=== PATIENT | male | born 1975 | race Caucasian/White ===

== ENCOUNTER 2018-07-16 15:30 | Emergency (ER) | payer BC ==
--- NOTE | 2018-07-16 15:36 | UC ---
Cardiac HPI - HPI Summary HPI Summary: fleeting episodes of chest pain until 3 days ago--got SOB while swimming ( which is unusual for him). has a family history of cardiac disorders,takes an aspirin, last cholesterol check was 1 year ago and did not need to be on medications, non-smoker, no leg pain or swelling, has not had a cardiac stress test - History of Current Complaint Chief Complaint: UCCardiac Stated Complaint: CHEST TIGHTNESS Time Seen by Provider: 07/16/18 15:35 Hx Obtained From: Patient Onset/Duration: Sudden Onset, Worse Since - 4 days ago had an episode of MCKEON Timing: Intermittent Episodes Lasting: Current Severity: Mild Chest Pain Location: Right Anterior Character: Tightness Aggravating Factor(s): Exertion - -causes SOB 3 days ago Alleviating Factor(s): Rest Associated Signs & Symptoms: Positive: Chest Pain, SOB. Negative: Syncope, Diaphoresis, Nausea/Vomiting - Allergy/Home Medications Allergies/Adverse Reactions: Allergies Allergy/AdvReac Type Severity Reaction Status Date / Time animal dander Allergy Severe respiratory Uncoded 07/16/18 15:48 /hives apples Allergy Severe tingling Uncoded 07/16/18 15:48 in mouth pears Allergy Severe Tingling Uncoded 07/16/18 15:48 pitted fruit Allergy Severe oral Uncoded 07/16/18 15:48 tingling Home Medications: Home Medications Fluticasone-Salmeterol 100-50* [Advair Diskus 100-50*] 07/16/18 [History Confirmed 07/16/18] Loratadine [Claritin] 10 mg PO 07/16/18 [History] PMH/Surg Hx/FS Hx/Imm Hx Respiratory History: Asthma - Surgical History Surgical History: None - Family History Known Family History: Positive: Cardiac Disease - Social History Occupation: Employed Full-time Lives: With Family Alcohol Use: Occasionally Substance Use Type: None Review of Systems Constitutional: Negative Skin: Negative Eyes: Negative ENT: Negative Respiratory: Shortness Of Breath - with exertion 3 days ago Cardiovascular: Negative Gastrointestinal: Negative Genitourinary: Negative Motor: Negative Neurovascular: Negative Musculoskeletal: Negative Neurological: Negative Psychological: Negative Is Patient Immunocompromised?: No All Other Systems Reviewed And Are Negative: Yes Physical Exam Triage Information Reviewed: Yes Appearance: Well-Appearing, No Pain Distress, Well-Nourished Vital Signs Reviewed: Yes Eye Exam: Normal Eyes: Positive: Conjunctiva Clear ENT Exam: Normal ENT: Positive: Normal ENT inspection, Hearing grossly normal, Pharynx normal, TMs normal, Uvula midline. Negative: Nasal congestion, Tonsillar swelling, Tonsillar exudate, Trismus, Muffled voice, Hoarse voice, Dental tenderness, Sinus tenderness Dental Exam: Normal Neck exam: Normal Neck: Positive: Supple, Nontender, No Lymphadenopathy Respiratory Exam: Normal Respiratory: Positive: Chest non-tender, Lungs clear, Normal breath sounds, No respiratory distress, No accessory muscle use Cardiovascular Exam: Normal Cardiovascular: Positive: RRR, No Murmur, Pulses Normal, Brisk Capillary Refill Abdominal Exam: Normal Abdomen Description: Positive: Nontender, No Organomegaly, Soft. Negative: CVA Tenderness (R), CVA Tenderness (L), Distended, Guarding, Peritoneal Signs Bowel Sounds: Positive: Present Musculoskeletal Exam: Normal Musculoskeletal: Positive: Strength Intact, ROM Intact, No Edema Neurological Exam: Normal Neurological: Positive: Alert, Muscle Tone Normal Psychological Exam: Normal Skin Exam: Normal Diagnostics - EKG Cardiac Rate: NL Cardiac Rhythm: Sinus: Normal Ectopy: None ST Segment: Normal EKG Comparison: No Significant Change - Assessment/Plan Course Of Treatment: plan will go to [facility] [place] [place] ED by private car for further evaluation of Chest Pain - Clinical Impression Provider Diagnoses: Dyspnea on exertion, chest pain - Physician Notifications Instructed by Provider To: Other - to [facility] by private car Discharge - Sign-Out/Discharge Documenting (check all that apply): Patient Departure - Discharge Plan Condition: Stable Disposition: HOME-RECOMMEND TO ED Patient Education Materials: Chest Pain (ED), Shortness of Breath (ED) Referrals: Tucker Heller MD [Primary Care Provider] - - Billing Disposition and Condition Condition: STABLE Disposition: Home-Recommend to ED
[2018-07-16 15:48] VITALS: BP 128/75
== END 2018-07-16 16:24 | disposition home health service (06) ==
LOC: UCEAST 15:30
DX: R06.00 Dyspnea, unspecified (principal); R07.89 Other chest pain; J45.909 Unspecified asthma, uncomplicated
CPT/HCPCS: 93005; 99212; G0463

== ENCOUNTER 2018-07-16 16:52 | Emergency (ER) | payer BC ==
--- NOTE | 2018-07-16 18:54 | RAD ---
INDICATION: Chest pain COMPARISON: August 30, 2013 TECHNIQUE: PA and lateral dual-energy views were obtained. FINDINGS: Bones/Soft Tissues: There are no acute bony findings. Cardiomediastinal: The cardiomediastinal silhouette is normal. Lungs: There are no infiltrates. Pleura: There are no pleural effusions. Other: None IMPRESSION: NO ACTIVE DISEASE.
[2018-07-16 19:44] LABS: ABS Basophils 0 10^3/ul (0-0.2); ABS Eosinophils 0.3 10^3/ul (0-0.6); ABS Lymphocytes 1.6 10^3/ul (1.0-4.8); ABS Monocytes 0.6 10^3/ul (0-0.8); ABS Nucleated RBC 0 10^3/ul; Eosinophil % 3.5 % (0-6); Hematocrit 44 % (42-52); Hemoglobin 14.8 g/dl (14.0-18.0); Lymphocyte % 21.8 % (25-47); Mean Corpuscular HGB Conc 34 g/dl (31-36); Mean Corpuscular Hemoglobin 29 pg (27-31); Mean Corpuscular Volume 84 fL (80-94); Mean Platelet Volume 8.1 um3 (7.4-10.4); Nucleated Red Blood Cells % 0.1; Platelet Count 270 10^3/ul (150-450); Red Blood Count 5.18 10^6/ul (4.00-5.40); Red Cell Distribution Width 13 % (10.5-15); White Blood Count 7.5 10^3/ul (3.5-10.8)
[2018-07-16 20:04] LABS: EGFR Non-African American 68.7 (>60)
--- NOTE | 2018-07-16 22:22 | ED ---
HPI Chest Pain - HPI Summary HPI Summary: 43-year-old male presents today with chest pain for the past 2 weeks. He states that it seems to be worse after he eats. He has tried Tums with some relief. She also states that he went swimming 1 lap on Friday and developed shortness of breath. He states it was felt that chest tightness. He has history of asthma. He states that he normally swims once a week and never gets short of breath. He admits to occasional cough that is nonproductive. No fevers. He admits to some epigastric pain. He states the pain changes location in his chest. He states it is sharp or burning in nature. He denies any pain or swelling in his calf muscles. He is nonsmoker. He does have a family history of cardiac disease with his grandfather unsure what age and diagnosis it. He has had this before and it was found out to be gastritis. has not had a stress test. - History of Current Complaint Chief Complaint: EDChestPainROMI Time Seen by Provider: 07/16/18 22:07 Pain Intensity: 1 - Allergy/Home Medications Allergies/Adverse Reactions: Allergies Allergy/AdvReac Type Severity Reaction Status Date / Time pollen extracts Allergy Eyes Verified 07/16/18 22:12 Itchy/Swollen/Red/Watery animal dander Allergy Severe respiratory Uncoded 07/16/18 15:48 /hives apples Allergy Severe tingling Uncoded 07/16/18 15:48 in mouth pears Allergy Severe Tingling Uncoded 07/16/18 15:48 pitted fruit Allergy Severe oral Uncoded 07/16/18 15:48 tingling PMH/Surg Hx/FS Hx/Imm Hx Endocrine/Hematology History: Denies: Hx Anticoagulant Therapy Cardiovascular History: Denies: Hx Hypertension Respiratory History: Reports: Hx Asthma - Immunization History Date of Tetanus Vaccine: unk Date of Influenza Vaccine: fall 2016 Infectious Disease History: No Infectious Disease History: Denies: Traveled Outside the [place] in Last 30 Days - Family History Known Family History: Positive: Cardiac Disease - Social History Alcohol Use: Occasionally Substance Use Type: Reports: None Smoking Status (MU): Never Smoked Tobacco Review of Systems Negative: Fever Positive: Chest Pain Positive: Shortness Of Breath, Cough Positive: Abdominal Pain, Nausea. Negative: Vomiting, Diarrhea All Other Systems Reviewed And Are Negative: Yes Physical Exam Triage Information Reviewed: Yes Vital Signs On Initial Exam: Initial Vitals Temp Pulse Resp BP Pulse Ox 97.8 F 82 16 126/88 96 07/16/18 17:08 07/16/18 17:08 07/16/18 17:08 07/16/18 17:08 07/16/18 17:08 Vital Signs Reviewed: Yes Appearance: Positive: Well-Appearing Skin: Positive: Warm, Dry Head/Face: Positive: Normal Head/Face Inspection Eyes: Positive: Normal, EOMI, JONY, Conjunctiva Clear ENT: Positive: Pharynx normal Respiratory/Lung Sounds: Positive: Clear to Auscultation, Breath Sounds Present , Other - nontender chest wall Cardiovascular: Positive: Normal, RRR Abdomen Description: Positive: Nontender, Soft Bowel Sounds: Positive: Present Musculoskeletal: Positive: Normal Neurological: Positive: Normal Psychiatric: Positive: Normal Diagnostics - Vital Signs Vital Signs Temp Pulse Resp BP Pulse Ox 07/16/18 20:40 98.2 F 86 16 136/83 99 07/16/18 17:08 97.8 F 82 16 126/88 96 - Laboratory Lab Results: Lab Results 07/16/18 07/16/18 07/16/18 Range/Units 19:37 19:37 19:37 WBC 7.5 (3.5-10.8) 10^3/ul RBC 5.18 (4.00-5.40) 10^6/ul Hgb 14.8 (14.0-18.0) g/dl Hct 44 (42-52) % MCV 84 (80-94) fL MCH 29 (27-31) pg MCHC 34 (31-36) g/dl RDW 13 (10.5-15) % Plt Count 270 (150-450) 10^3/ul MPV 8.1 (7.4-10.4) um3 Neut % (Auto) 67.0 (38-83) % Lymph % (Auto) 21.8 L (25-47) % Clayton % (Auto) 7.4 H (0-7) % Eos % (Auto) 3.5 (0-6) % Baso % (Auto) 0.3 (0-2) % Absolute Neuts (auto) 5.0 (1.5-7.7) 10^3/ul Absolute Lymphs (auto) 1.6 (1.0-4.8) 10^3/ul Absolute Monos (auto) 0.6 (0-0.8) 10^3/ul Absolute Eos (auto) 0.3 (0-0.6) 10^3/ul Absolute Basos (auto) 0 (0-0.2) 10^3/ul Absolute Nucleated RBC 0 10^3/ul Nucleated RBC % 0.1 D-Dimer, Quantitative (Less Than 230) ng/mL Sodium 138 (135-145) mmol/L Potassium 4.1 (3.5-5.0) mmol/L Chloride 103 (101-111) mmol/L Carbon Dioxide 30 (22-32) mmol/L Anion Gap 5 (2-11) mmol/L BUN 17 (6-24) mg/dL Creatinine 1.17 (0.67-1.17) mg/dL Est GFR ( Amer) 83.1 (>60) Est GFR (Non-Af Amer) 68.7 (>60) BUN/Creatinine Ratio 14.5 (8-20) Glucose 132 H (70-100) mg/dL Lactic Acid 1.5 (0.5-2.0) mmol/L Calcium 9.2 (8.6-10.3) mg/dL Total Bilirubin 0.30 (0.2-1.0) mg/dL AST 20 (13-39) U/L ALT 20 (7-52) U/L Alkaline Phosphatase 45 (34-104) U/L Troponin I 0.00 (<0.04) ng/mL Total Protein 6.8 (6.4-8.9) g/dL Albumin 4.4 (3.2-5.2) g/dL Globulin 2.4 (2-4) g/dL Albumin/Globulin Ratio 1.8 (1-3) 07/16/18 07/16/18 Range/Units 19:37 21:28 WBC (3.5-10.8) 10^3/ul RBC (4.00-5.40) 10^6/ul Hgb (14.0-18.0) g/dl Hct (42-52) % MCV (80-94) fL MCH (27-31) pg MCHC (31-36) g/dl RDW (10.5-15) % Plt Count (150-450) 10^3/ul MPV (7.4-10.4) um3 Neut % (Auto) (38-83) % Lymph % (Auto) (25-47) % Clayton % (Auto) (0-7) % Eos % (Auto) (0-6) % Baso % (Auto) (0-2) % Absolute Neuts (auto) (1.5-7.7) 10^3/ul Absolute Lymphs (auto) (1.0-4.8) 10^3/ul Absolute Monos (auto) (0-0.8) 10^3/ul Absolute Eos (auto) (0-0.6) 10^3/ul Absolute Basos (auto) (0-0.2) 10^3/ul Absolute Nucleated RBC 10^3/ul Nucleated RBC % D-Dimer, Quantitative < 200 (Less Than 230) ng/mL Sodium (135-145) mmol/L Potassium (3.5-5.0) mmol/L Chloride (101-111) mmol/L Carbon Dioxide (22-32) mmol/L Anion Gap (2-11) mmol/L BUN (6-24) mg/dL Creatinine (0.67-1.17) mg/dL Est GFR ( Amer) (>60) Est GFR (Non-Af Amer) (>60) BUN/Creatinine Ratio (8-20) Glucose (70-100) mg/dL Lactic Acid (0.5-2.0) mmol/L Calcium (8.6-10.3) mg/dL Total Bilirubin (0.2-1.0) mg/dL AST (13-39) U/L ALT (7-52) U/L Alkaline Phosphatase (34-104) U/L Troponin I 0.00 (<0.04) ng/mL Total Protein (6.4-8.9) g/dL Albumin (3.2-5.2) g/dL Globulin (2-4) g/dL Albumin/Globulin Ratio (1-3) Result Diagrams: 07/16/18 19:37 07/16/18 19:37 Lab Statement: Any lab studies that have been ordered have been reviewed, and results considered in the medical decision making process. - Radiology chest Xray Interpretation: No Acute Changes Radiology Interpretation Completed By: Radiologist - EKG No standard instances Cardiac Rate: NL EKG Rhythm: Sinus Rhythm Ectopy: None EKG Interpretation: normal sinus rhythm EKG Comparison: No Significant Change Chest Pain Course/Dx - Course Course Of Treatment: 43-year-old male presents today with chest pain for the past 2 weeks. He states that it seems to be worse after he eats. He has tried Tums with some relief. She also states that he went swimming 1 lap on Friday and developed shortness of breath. He states it was felt that chest tightness. He has history of asthma. He states that he normally swims once a week and never gets short of breath. He admits to occasional cough that is nonproductive. No fevers. He admits to some epigastric pain. He states the pain changes location in his chest. He states it is sharp or burning in nature. He denies any pain or swelling in his calf muscles. He is nonsmoker. He does have a family history of cardiac disease with his grandfather unsure what age and diagnosis it. He has had this before and it was found out to be gastritis. has not had a stress test. on exam nontender chest wall. lungs CTA. ekg normal sinus rhythmn. troponin zero and 3 hours neg. d-dimer neg. heart score<1. will discharge home discussed could be asthma vs gerd. will have follow up with primary for potential stress test with fam hx. patient understand and agrees with plan. - Chest Pain Differential Diagnosis/HQI/PQRI: Acute DC, GI Disease, Lower Respiratory Infection, Pulmonary Embolism - Diagnoses Provider Diagnoses: Chest pain Discharge - Sign-Out/Discharge Documenting (check all that apply): Patient Departure - Discharge Plan Condition: Good Disposition: HOME Patient Education Materials: Chest Pain (ED) Referrals: Tucker Heller MD [Primary Care Provider] - Additional Instructions: try pepcid daily Follow up with primary within 5 days Return to ED if develop any new or worsening symptoms - Billing Disposition and Condition Condition: GOOD Disposition: Home
[2018-07-16 22:42] VITALS: BP 142/94
== END 2018-07-16 22:42 | disposition home or self-care (01) ==
LOC: ED 16:52
DX: R07.9 Chest pain, unspecified (principal); Z82.49 Family history of ischemic heart disease and other diseases of the circulatory system; J45.909 Unspecified asthma, uncomplicated
CPT/HCPCS: 36415; 71046; 80053; 83605; 84484; 85025; 85379; 93005; 99282

== ENCOUNTER 2018-12-15 09:17 | Emergency (ER) | payer BC, OTHER ==
[2018-12-15 09:40] VITALS: BP 121/81
--- NOTE | 2018-12-15 09:50 | UC ---
Ear Complaint HPI - HPI Summary HPI Summary: 43 yo male presents with right ear pain since last night with some decreased hearing. Denies fever, chills, sinus symptoms, sore throat, or cough. No recent illness. - History of Current Complaint Chief Complaint: UCGeneralIllness Stated Complaint: PLUGGED / PAINFUL EAR Time Seen by Provider: 12/15/18 09:41 Hx Obtained From: Patient Severity Initially: Mild Severity Currently: Mild Pain Intensity: 2 Pain Scale Used: 0-10 Numeric - Allergies/Home Medications Allergies/Adverse Reactions: Allergies Allergy/AdvReac Type Severity Reaction Status Date / Time pollen extracts Allergy Eyes Verified 07/16/18 22:12 Itchy/Swollen/Red/Watery animal dander Allergy Severe respiratory Uncoded 07/16/18 15:48 /hives apples Allergy Severe tingling Uncoded 07/16/18 15:48 in mouth pears Allergy Severe Tingling Uncoded 07/16/18 15:48 pitted fruit Allergy Severe oral Uncoded 07/16/18 15:48 tingling PMH/Surg Hx/FS Hx/Imm Hx Respiratory History: Asthma Other History Of: Negative For: Anticoagulant Therapy - Surgical History Surgical History: None - Family History Known Family History: Positive: Cardiac Disease - Social History Occupation: Employed Full-time Lives: With Family Alcohol Use: Occasionally Substance Use Type: None Smoking Status (MU): Never Smoked Tobacco - Immunization History Most Recent Tetanus Shot: unsure Review of Systems All Other Systems Reviewed And Are Negative: Yes Constitutional: Positive: Negative Skin: Positive: Negative Eyes: Positive: Negative ENT: Positive: Ear Ache Respiratory: Positive: Negative Cardiovascular: Positive: Negative Gastrointestinal: Positive: Negative Neurological: Positive: Negative Psychological: Positive: Negative Physical Exam - Summary Physical Exam Summary: GENERAL: NAD. WDWN. No pain distress. SKIN: No rashes, sores, lesions, or open wounds. HEENT: Head: AT/NC Eyes: EOM intact. Conjunctiva clear without inflammation or discharge. Ears: Hearing grossly normal. No canal edema or drainage. RIGHT ear occluded by brown/yellow impacted cerumen. s/p irrigation TM is WNL and intact. LEFT ear WNL and TM intact. Nose: Nasal mucosa pink and moist. NTTP maxillary and frontal sinus. Throat: Posterior oropharynx without exudates, erythema, or tonsillar enlargement. Uvula midline. NECK: Supple. Nontender. No lymphadenopathy. CHEST: CTAB. No r/r/w. No accessory muscle use. Breathing comfortably and in no distress. CV: RRR. Without m/r/g. Pulses intact. NEURO: Alert. PSYCH: Age appropriate behavior. Triage Information Reviewed: Yes Vital Signs: Initial Vital Signs Temp 97.5 F 12/15/18 09:33 Pulse 80 12/15/18 09:33 Resp 18 12/15/18 09:33 BP 121/81 12/15/18 09:33 Pulse Ox 96 12/15/18 09:33 Vital Signs Reviewed: Yes Ear Complaint Course/Dx - Course Course Of Treatment: Right ear cerumen impaction with successful irrigation and disimpaciton. Pt experienced resolution of his symptoms. - Differential Dx/Diagnosis Provider Diagnosis: Right ear impacted cerumen Discharge - Sign-Out/Discharge Documenting (check all that apply): Patient Departure All imaging exams completed and their final reports reviewed: No Studies - Discharge Plan Condition: Stable Disposition: HOME Patient Education Materials: Cerumen Impaction (ED) Referrals: Tucker Heller MD [Primary Care Provider] - Additional Instructions: If you develop a fever, shortness of breath, chest pain, new or worsening symptoms - please call your PCP or go to the ED. - Billing Disposition and Condition Condition: STABLE Disposition: Home
== END 2018-12-15 10:00 | disposition home or self-care (01) ==
LOC: UCEAST 09:17
DX: H61.21 Impacted cerumen, right ear (principal)
CPT/HCPCS: 99212; G0463

== ENCOUNTER 2019-07-07 15:40 | Emergency (ER) | payer BC ==
[2019-07-07 15:53] VITALS: BP 121/79
--- NOTE | 2019-07-07 16:29 | UC ---
Throat Pain/Nasal Rogelio HPI - HPI Summary HPI Summary: 44-year-old male presents with complaints of sinus congestion and headache for the past 2 weeks. Patient states his symptoms initially started out as a mild cold-like symptoms which lasted approximately one week and started to improve however approximately 3 days ago symptoms started worsening again. Symptoms are associated with some myalgias, joint pain, and fatigue. Patient does express a concern about possible Lyme disease although has had no known tick bite. Denies fever, chills, rash, ear pain, sore throat, cough, or difficulty breathing. - History of Current Complaint Chief Complaint: UCRespiratory Stated Complaint: SINUS COMPLAINT Time Seen by Provider: 07/07/19 16:15 Hx Obtained From: Patient Pain Intensity: 2 - Allergies/Home Medications Allergies/Adverse Reactions: Allergies Allergy/AdvReac Type Severity Reaction Status Date / Time pollen extracts Allergy Eyes Verified 07/07/19 15:54 Itchy/Swollen/Red/Watery animal dander Allergy Severe respiratory Uncoded 07/16/18 15:48 /hives apples Allergy Severe tingling Uncoded 07/16/18 15:48 in mouth pears Allergy Severe Tingling Uncoded 07/16/18 15:48 pitted fruit Allergy Severe oral Uncoded 07/16/18 15:48 tingling Home Medications: Home Medications Azelastine HCl 137 mcg INH DAILY 07/07/19 [History Confirmed 07/07/19] diPHENhydraMINE PO* [Benadryl PO 25 MG TAB*] 25 mg PO DAILY 07/07/19 [History Confirmed 07/07/19] PMH/Surg Hx/FS Hx/Imm Hx Previously Healthy: Yes Respiratory History: Asthma Other History Of: Negative For: Anticoagulant Therapy - Surgical History Surgical History: None - Family History Known Family History: Positive: Cardiac Disease - Social History Occupation: Employed Full-time Lives: With Family Alcohol Use: Occasionally Substance Use Type: None Smoking Status (MU): Never Smoked Tobacco - Immunization History Most Recent Tetanus Shot: unsure Review of Systems All Other Systems Reviewed And Are Negative: Yes Constitutional: Positive: Fatigue. Negative: Fever, Chills Skin: Negative: Rash Eyes: Negative: Drainage, Eye Redness ENT: Positive: Nasal Discharge, Sinus Congestion, Sinus Pain/Tenderness. Negative: Sore Throat, Ear Ache Respiratory: Negative: Shortness Of Breath, Cough Cardiovascular: Positive: Negative Gastrointestinal: Positive: Negative Genitourinary: Positive: Negative Musculoskeletal: Positive: Arthralgia, Myalgia Neurological: Positive: Negative Is Patient Immunocompromised?: No Physical Exam - Summary Physical Exam Summary: GENERAL APPEARANCE: Well developed, well nourished, alert and cooperative, and appears to be in no acute distress. EYES: Conjunctiva clear. No drainage. EARS: External auditory canals and tympanic membranes clear, hearing grossly intact. NOSE: Nasal congestion with mucosal erythema and mild edema. No nasal discharge. Tenderness over the maxillary sinuses with palpation. THROAT: Pharynx normal. No tonsilar inflammation, swelling, exudate, or lesions. Uvula midline. Oral cavity normal. Teeth and gingiva in good general condition. NECK: Neck supple, non-tender without lymphadenopathy. CARDIAC: Normal S1 and S2. No S3, S4 or murmurs. Rhythm is regular. There is no peripheral edema, cyanosis or pallor. Extremities are warm and well perfused. Capillary refill is less than 2 seconds. Peripheral pulses intact. LUNGS: Clear to auscultation without rales, rhonchi, wheezing or diminished breath sounds. ABDOMEN: Positive bowel sounds. Soft, nondistended, nontender. No guarding or rebound. No masses or hepatosplenomegally. MUSKULOSKELETAL: ROM intact to all extremities. No joint erythema or tenderness. Normal muscular development. Normal gait. SKIN: Skin normal color, texture and turgor with no lesions or eruptions. Triage Information Reviewed: Yes Vital Signs: Initial Vital Signs Temp 97.4 F 07/07/19 15:46 Pulse 93 07/07/19 15:46 Resp 12 07/07/19 15:46 BP 121/79 07/07/19 15:46 Pulse Ox 98 07/07/19 15:46 Vital Signs Reviewed: Yes Throat Pain/Nasal Course/Dx - Course Course Of Treatment: 44-year-old male presents with complaints of sinus congestion and headache for the past 2 weeks. Patient states his symptoms initially started out as a mild cold-like symptoms which lasted approximately one week and started to improve however approximately 3 days ago symptoms started worsening again. Symptoms are associated with some myalgias, joint pain, and fatigue. Patient does express a concern about possible Lyme disease although has had no known tick bite. Denies fever, chills, rash, ear pain, sore throat, cough, or difficulty breathing. Afebrile. Vital signs stable. Patient had nasal congestion with mucosal erythema and mild edema, maxillary sinus tenderness, and otherwise unremarkable exam. Considering the duration and worsening of his symptoms will treat him for an acute sinus infection with doxycycline 100 mg twice a day 10 days as well as symptomatic therapy. Because of his concern for Lyme disease a Lyme screen was performed today. Patient was informed that if this is positive he will need to have his treatment extended in order to adequately treat the Lyme. However at the Lyme is negative he will need to have retesting performed in one week to confirm. He is to follow-up with his primary care provider in one week. States he has an appointment scheduled already. Anticipatory guidance and warning symptoms are reviewed with the patient verbalizes understanding and agrees with plan of care. - Differential Dx/Diagnosis Differential Diagnosis/HQI/PQRI: Pharyngitis, Sinusitis, URI Provider Diagnosis: Acute sinusitis Discharge - Sign-Out/Discharge Documenting (check all that apply): Patient Departure All imaging exams completed and their final reports reviewed: No Studies - Discharge Plan Condition: Critical Disposition: HOME Prescriptions: Doxycycline Hyclate 100 mg PO BID #20 tablet Fluticasone NASAL SPRAY 50MCG* [Flonase NASAL SPRAY 50MCG*] 2 spray BOTH NARES DAILY #1 btl Patient Education Materials: Sinusitis (ED) Referrals: Tucker Heller MD [Primary Care Provider] - 3 Days Additional Instructions: Your history and exam are consistent with a sinus infection. Considering the duration and worsening of your symptoms we will treat you with a course of antibiotics. Start doxycycline 100 mg twice a day for 10 days. Do not drink milk, eat milk products, or takes supplements containing calcium for at least 2 hours before after taking this medication as the calcium can affect the absorption. This antibiotic will also make you more sensitive to the sunlight therefore it is recommended that you try to avoid sun exposure while taking. If you must be outdoors take appropriate precautions including sunscreen, long sleeves, and hat. Drink plenty of fluids to avoid dehydration especially if you are running any fever. Use a saline rinse kit such as Neti Pot or NeilMed at least twice a day to help thin secretions and promote drainage of the sinuses. Use fluticasone (Flonase) nasal spray 2 sprays each nostril once daily. We have sent a test for Lyme disease today. If it is positive we will need to extend the course of your antibiotics for a complete treatment for Lyme disease. If it is negative, you should be retested in 1 week to verify that it is negative. Take over the counter acetaminophen (Tylenol) or ibuprofen (Advil, Motrin) according to directions as needed for pain or fever. Follow up with your primary care provider in 7 days for recheck of symptoms. Seek immediate medical attention in the emergency room if you have fever greater than 100.5 F despite taking acetaminophen or ibuprofen, have chest pain , difficulty breathing, are unable to swallow, or have any worsening of symptoms. - Billing Disposition and Condition Condition: CRITICAL Disposition: Home - Attestation Statements Provider Attestation: Per institutional requirements, I have reviewed the chart, however, I was not consulted specifically or made aware of this patient by the midlevel provider. I did not personally evaluate, interact with , or disposition this patient.
== END 2019-07-07 16:54 | disposition home or self-care (01) ==
LOC: UCEAST 15:40
DX: J01.90 Acute sinusitis, unspecified (principal); J45.909 Unspecified asthma, uncomplicated
CPT/HCPCS: 36415; 86617; 86618; 99212; G0463